=== PATIENT | female | born 1995 | race Caucasian/White ===

== ENCOUNTER 2021-08-06 14:52 | Emergency (ER) | payer OTHER ==
[~2021-08-06 14:52] MED LIST: VISTARIL25 MG PO
[2021-08-06 17:52] LABS: RED BLOOD COUNT 4.37 M/UL (4.00-5.10); WHITE BLOOD COUNT 10.5 K/UL (4.5-11.0)
[2021-08-06 18:08] LABS: BUN/CREATININE RATIO 11 (0-10)
== END 2021-08-06 22:34 | disposition home or self-care (01) ==
LOC: ER1 14:52
PROVIDERS: Emergency Medicine
DX: G89.18 Other acute postprocedural pain (principal); M54.2 Cervicalgia
CPT/HCPCS: 70488; 70491; 71045; 80048; 81001; 83605; 84703; 85025; 87081; 87086; 87880; 93005; 96374; 96375; 99284; J1885; J2405; Q9967